=== PATIENT | male | born 1995 | race Caucasian/White ===

== ENCOUNTER 2022-11-22 00:22 | Emergency (ER) | payer SELFPAY ==
[2022-11-22] MEDS ORDERED: Rocuronium 100 MG/10 ML MDV IV ONE (00:23)
[2022-11-22] MEDS ORDERED: Etomidate 2 MG/ML 20 ML SDV IVPUSH ONE (00:23)
[2022-11-22] MEDS ORDERED: HYDROmorphone 1 MG/ML Syringe IVPUSH ONE (00:51)
[2022-11-22] MEDS ORDERED: Sodium Chloride 0.9% 1,000 ML IV ONE (00:51)
[2022-11-22] MEDS ORDERED: Sodium Chloride 0.9% 10 ML Syringe FLUSH PRN (00:51)
[2022-11-22] MEDS ORDERED: LORazepam 2 MG/ML SDV IVPUSH ONE (00:51)
[2022-11-22] MEDS: HYDROmorphone 2 MG/ML Syringe ONE ×2 (00:51→01:55)
[2022-11-22] MEDS ORDERED: Sodium Chloride 0.9% 2.5 ML Syringe FLUSH PRN (00:51)
[2022-11-22] MEDS ORDERED: Folic Acid 1 MG/0.2 ML UD Syringe SUBCUT ONE (00:54)
[2022-11-22] MEDS ORDERED: Thiamine 200 MG/2 ML MDV IVPUSH ONE (00:54)
[2022-11-22] MEDS ORDERED: fentaNYL 100 MCG/2 ML SDV IVPUSH ONE (00:56)
[2022-11-22] MEDS ORDERED: fentaNYL/Normal Saline 2,500 MCG in Premix Bag 1 BAG IV PRN (00:59)
[2022-11-22] MEDS ORDERED: propofoL 100 ML IV SCH (01:00)
[2022-11-22 01:01] LABS: BASOPHILS PERCENT AUTO 0.3 % (0.0-1.5); EOSINOPHILS ABSOLUTE AUTO 0.2 K/uL (0.0-0.7); EOSINOPHILS PERCENT AUTO 1.8 % (0.0-7.0); HEMATOCRIT 44.9 % (38.0-50.0); HEMOGLOBIN 15.4 g/dL (13.0-17.0); LYMPHOCYTES ABSOLUTE AUTO 3.2 K/uL (0.6-2.4); LYMPHOCYTES PERCENT AUTO 31.1 % (16.0-40.0); MEAN CORPUSCULAR HEMOGLOBIN 33.5 pg (27.0-32.0); MEAN CORPUSCULAR HGB CONC 34.3 g/dL (31.0-37.0); MEAN CORPUSCULAR VOLUME 97.6 fL (80.0-98.0); MONOCYTES ABSOLUTE AUTO 0.5 K/uL (0.0-0.8); MONOCYTES PERCENT AUTO 4.8 % (0.0-15.0); NEUTROPHILS ABSOLUTE AUTO 6.4 K/uL (1.4-5.7); NRBC ABSOLUTE 0 K/uL; PLATELET COUNT,PLT 363 K/uL (150-400); WHITE BLOOD CELL COUNT,WBC 10.23 K/uL (4.0-11.0)
[2022-11-22 01:04] LABS: APPEARANCE,URINE CLEAR; BILIRUBIN,URINE NEGATIVE (NEGATIVE); GLUCOSE,URINE NEGATIVE (NEGATIVE); KETONES,URINE NEGATIVE (NEGATIVE); LEUKOCYTE ESTERASE,URINE NEGATIVE (NEGATIVE); NITRITE,URINE NEGATIVE (NEGATIVE); OCCULT BLOOD,URINE NEGATIVE (NEGATIVE); PROTEIN,URINE NEGATIVE (NEGATIVE); UROBILINOGEN,URINE 0.2 EU/dL (<2.0)
[2022-11-22 01:05] LABS: COLOR,URINE STRAW
[2022-11-22 01:08] LABS: INR 0.97 (0.86-1.11); LACTIC ACID 2.9 mmol/L (0.4-2.0)
[2022-11-22 01:14] LABS: AMPHETAMINES SCREEN, URINE NEGATIVE (CUTOFF=500); BARBITURATE SCREEN,URINE NEGATIVE (CUTOFF=200); BENZODIAZEPINES SCREEN,URINE NEGATIVE (CUTOFF=150); BUPRENORPHINE SCREEN,URINE NEGATIVE (CUTOFF=10); METHADONE SCREEN, URINE NEGATIVE (CUTOFF=200); METHAMPHETAMINES SCREEN, URINE NEGATIVE (CUTOFF=500); OXYCODONE SCREEN,URINE NEGATIVE (CUT0FF=100); PCP SCREEN,URINE NEGATIVE (CUTOFF=25); PROPOXYPHENE SCREEN,URINE NEGATIVE (CUTOFF=300); THC SCREEN,URINE 20 NG/ML PRESUMPTIVE POSITIVE (CUTOFF=50)
[2022-11-22 01:21] LABS: ACETAMINOPHEN <2.0 ug/mL; ALANINE AMINOTRANSFERASE,ALT 24 IU/L (14-63); ALKALINE PHOSPHATASE 86 U/L (46-116); ASPARTATE AMNIOTRANSFERASE,AST 20 IU/L (15-37); BILIRUBIN TOTAL 0.2 mg/dL (0.2-1.0); BLOOD UREA NITROGEN,BUN 19 mg/dL (7.0-18.0); CALCIUM 8.4 mg/dL (8.5-10.1); CARBON DIOXIDE,CO2 21.7 mmol/L (21.0-32.0); CHLORIDE,CL 100 mmol/L (98-107); CREATINE KINASE,CK 143 U/L (26-308); CREATININE 1.1 mg/dL (0.8-1.3); EST CRCL DRUG DOSING (CG) 110.72 mL/min; GLUCOSE RANDOM 103 mg/dL (74-106); LIPASE 259 U/L (73-393); MAGNESIUM 2.1 mg/dL (1.8-2.4); PHOSPHORUS 4.2 mg/dL (2.6-4.7); POTASSIUM,K 3.9 mmol/L (3.5-5.1); SALICYLATE 1.4 mg/dL (0.0-20.0); SODIUM,NA 137 mmol/L (136-148); TSH ULTRASENSITIVE 1.19 uIU/mL (0.36-3.74)
[2022-11-22 01:22] LABS: ESTIMATED GFR 94 mL/min (>60); ETHANOL BLOOD MEDICAL 443 mg/dL
[2022-11-22 01:50] LABS: BASE EXCESS ARTERIAL -4.3 (-2.0-3.0); BICARBONATE,ARTERIAL 21 mEq/L (22-26); PCO2 ARTERIAL 38 mmHG (35-45); PO2 ARTERIAL 93 mmHG (80-105)
[2022-11-22] MEDS: LORazepam 2 MG/ML SDV IVPUSH SCH ×4 (01:52→03:35)
[2022-11-22] MEDS: fentaNYL 50 MCG/ML SDV IVPUSH PRN ×2 (02:20→03:36)
[2022-11-22] MEDS ORDERED: Dextrose 5%-Lactated Ringers 1,000 ML IV SCH (02:30)
== END 2022-11-22 04:16 ==
LOC: MW.ED 00:22
DX: T51.91XA Toxic effect of unspecified alcohol, accidental (unintentional), initial encounter (principal)
CPT/HCPCS: 31500; 36415; 36600; 43752; 51702; 70450; 71045; 80053; 80143; 80179; 80184; 80305; 80307; 81003; 82550; 82803; 83605; 83690; 83735; 84100; 84443; 85025; 85610; 93005; 96361; 96372; 96374; 96375; 96376; 99291; J1170; J2060; J2704; J3010; J3411; J3490; J7030; J7121; 93010; 99292

== ENCOUNTER 2022-12-18 12:06 | Emergency (ER) | payer SELFPAY ==
[2022-12-18] MEDS ORDERED: Sodium Chloride 0.9% 1,000 ML IV ONE ×3 (12:14→13:12)
[2022-12-18 12:32] LABS: BASOPHILS PERCENT AUTO 0.5 % (0.0-1.5); EOSINOPHILS ABSOLUTE AUTO 0.2 K/uL (0.0-0.7); EOSINOPHILS PERCENT AUTO 2.2 % (0.0-7.0); HEMATOCRIT 43.2 % (38.0-50.0); HEMOGLOBIN 15.1 g/dL (13.0-17.0); LYMPHOCYTES ABSOLUTE AUTO 3.7 K/uL (0.6-2.4); LYMPHOCYTES PERCENT AUTO 43.9 % (16.0-40.0); MEAN CORPUSCULAR HEMOGLOBIN 33.7 pg (27.0-32.0); MEAN CORPUSCULAR VOLUME 96.4 fL (80.0-98.0); MONOCYTES ABSOLUTE AUTO 0.5 K/uL (0.0-0.8); MONOCYTES PERCENT AUTO 5.4 % (0.0-15.0); NEUTROPHILS ABSOLUTE AUTO 4.1 K/uL (1.4-5.7); NRBC ABSOLUTE 0 K/uL; PLATELET COUNT,PLT 464 K/uL (150-400); RED BLOOD CELL COUNT 4.48 M/uL (4.50-5.90); WHITE BLOOD CELL COUNT,WBC 8.48 K/uL (4.0-11.0)
[2022-12-18 12:55] LABS: LACTIC ACID 3.3 mmol/L (0.4-2.0)
[2022-12-18 12:59] LABS: A/G RATIO 0.9 (0.9-1.6); ALBUMIN 3.9 g/dL (3.4-5.0); BILIRUBIN TOTAL 0.2 mg/dL (0.2-1.0); CALCIUM 8.6 mg/dL (8.5-10.1); CARBON DIOXIDE,CO2 24.2 mmol/L (21.0-32.0); CREATININE 1.2 mg/dL (0.8-1.3); EST CRCL DRUG DOSING (CG) 94.33 mL/min; MAGNESIUM 2.3 mg/dL (1.8-2.4); POTASSIUM,K 3.2 mmol/L (3.5-5.1); PROTEIN TOTAL,TP 8.1 g/dL (6.4-8.2)
[2022-12-18 14:14] LABS: APPEARANCE,URINE CLEAR; BILIRUBIN,URINE NEGATIVE (NEGATIVE); COLOR,URINE YELLOW; GLUCOSE,URINE NEGATIVE (NEGATIVE); KETONES,URINE NEGATIVE (NEGATIVE); LEUKOCYTE ESTERASE,URINE NEGATIVE (NEGATIVE); NITRITE,URINE NEGATIVE (NEGATIVE); OCCULT BLOOD,URINE NEGATIVE (NEGATIVE); PROTEIN,URINE NEGATIVE (NEGATIVE); UROBILINOGEN,URINE 0.2 EU/dL (<2.0)
[2022-12-18 14:23] LABS: AMPHETAMINES SCREEN, URINE NEGATIVE (CUTOFF=500); BARBITURATE SCREEN,URINE NEGATIVE (CUTOFF=200); BENZODIAZEPINES SCREEN,URINE NEGATIVE (CUTOFF=150); BUPRENORPHINE SCREEN,URINE NEGATIVE (CUTOFF=10); METHADONE SCREEN, URINE NEGATIVE (CUTOFF=200); METHAMPHETAMINES SCREEN, URINE NEGATIVE (CUTOFF=500); OXYCODONE SCREEN,URINE NEGATIVE (CUT0FF=100); PCP SCREEN,URINE NEGATIVE (CUTOFF=25); PROPOXYPHENE SCREEN,URINE NEGATIVE (CUTOFF=300); THC SCREEN,URINE 20 NG/ML PRESUMPTIVE POSITIVE (CUTOFF=50)
[2022-12-18 15:17] LABS: LACTIC ACID 2.8 mmol/L (0.4-2.0)
== END 2022-12-18 15:07 | disposition left against medical advice (07) ==
LOC: MW.ED 12:06
DX: F10.120 Alcohol abuse with intoxication, uncomplicated (principal); F19.10 Other psychoactive substance abuse, uncomplicated; E87.20 Acidosis, unspecified; Y90.8 Blood alcohol level of 240 mg/100 ml or more
CPT/HCPCS: 36415; 71045; 80053; 80305; 80307; 81003; 83605; 83690; 83735; 85025; 87040; 93005; 96360; 96361; 99284; J7030; 93010; 99283